=== PATIENT | female | born 1980 | race Caucasian/White ===

== ENCOUNTER → 2018-11-27 | Outpatient (CLI) | payer OTHER ==
[~2018-11-27] MED LIST: ALDOMET 250MG250 MG PO; ALLEGRA60 MG PO; ASACOL; BIRTH CONTROL; BIRTH CONTROL PILL; CLEOCIN HC150 MG/CAP PO; COPPERAS1 CRE; MOTRIN 800800 MG/TAB PO; NORCO 325 MG-51 TAB PO; PERCOCET 325 MG1 TA2 PO; PNV-DHA1 SGL PO; PROCARDIA XL 6060 MG PO; TRIAMTERENE AND1 TA1 PO; [UNRECOGNIZED DRUG - OTHER]
== END ==
LOC: COL.CARD 13:51
DX: R00.2 Palpitations (principal)

== ENCOUNTER → 2020-04-23 | Outpatient (CLI) | payer OTHER | LOC: COL.RAD 08:38 | DX: Z01.812 Encounter for preprocedural laboratory examination (principal); K50.90 Crohn's disease, unspecified, without complications; K63.3 Ulcer of intestine; Z90.49 Acquired absence of other specified parts of digestive tract | CPT/HCPCS: A9585 ==

== ENCOUNTER → 2021-09-03 | Outpatient (CLI) | payer OTHER | LOC: MC.RAD 08:18 | DX: Z12.31 Encounter for screening mammogram for malignant neoplasm of breast (principal); N63.20 Unspecified lump in the left breast, unspecified quadrant ==

== ENCOUNTER → 2021-09-22 | Outpatient (CLI) | payer OTHER | LOC: MC.RAD 07:38 | DX: N63.25 Unspecified lump in the left breast, overlapping quadrants (principal) ==